=== PATIENT | male | born 1985 | race Caucasian/White ===

== ENCOUNTER 2018-07-15 12:01 | Emergency (ER) | payer OTHER ==
[2018-07-15] MEDS ORDERED: CEPHALEXIN 500 MG CAP PO ONE (12:51)
--- NOTE | 2018-07-15 12:54 | EDPHY ---
H & P Smoking Status: Never smoked Time Seen by Provider: 07/15/18 12:35 HPI/ROS: CHIEF COMPLAINT: Left thumb laceration HISTORY OF PRESENT ILLNESS: 33-year-old [id number] male sustained accidental laceration to his left thumb when he was opening a box of shortly prior to arrival. Laceration to his left thumb dorsal aspect proximal phalanx. Positive paresthesia distally. Complaining of pain to this area. [ PHYSICAL EXAM (Prior to examination, patient consented to physical exam, hands were washed and my usual and customary physical exam procedures followed) 1) GENERAL: Well-developed, well-nourished, alert and oriented. Appears anxious and uncomfortable 2) HEAD: Normocephalic 3) HEENT: sclera anicteric 4) LUNGS: Breathing comfortably. 5) SKIN: Left thumb dorsal aspect proximal phalanx 1.5 cm well-demarcated linear laceration. Superficial. No signs of infection 6) MUSCULOSKELETAL: Opposition abduction abduction extension intact of the thumb. No deficits. 7) NEUROLOGIC: Full sensation two-point discrimination intact to the thumb (Blayne,D Yecenia) Constitutional: Initial Vital Signs Temperature (C) 36.6 C 07/15/18 12:05 Heart Rate 60 07/15/18 12:05 Respiratory Rate 16 07/15/18 12:05 Blood Pressure 158/91 H 07/15/18 12:05 O2 Sat (%) 97 07/15/18 12:05 O2 Delivery Mode Room Air Allergies/Adverse Reactions: amoxicillin Allergy (Verified 07/15/18 12:04) Home Medications: Medication Instructions Recorded Finasteride 07/15/18 Singulair 07/15/18 MDM/Departure - [facility] Procedures: Procedure: Laceration repair. I explained the indications, risks and benefits for both laceration repair and anesthetic administration. Verbal consent was obtained from the [patient]. The laceration on the left thumb was anesthetized using [0.5% bupivicaine] [with ][out] [epinephrine]. After anesthetic administered the patient was observed for a period of time and had no apparent adverse effects. The wound was cleaned , prepped, draped in normal sterile fashion and explored to its base. No foreign body seen, no foreign bodies palpated. [There were no deep structures involved.] [No tendon injury was identified.] The wound was repaired with 3 simple interrupted 5 O Prolene sutures. The wound repair was [simple]. The procedure was performed by [myself]. Patient has been informed that scarring will occur, although efforts have been made to minimize this. Procedure: Splint A [ Velcro thumb spica] splint was applied by ER transport technician. After application of the splint I returned and re-examined the patient. The splint was adequately immobilizing the joint and distal to the splint the patient's circulation and sensation were intact. Patient shows no signs of compartment syndrome. Was given orthopedic precautions. (Ezra Cisneros) Medications Given: Discontinued Medications Cephalexin HCl (Keflex) 500 mg PO EDNOW ONE PRN Reason: Protocol Stop: 07/15/18 12:52 Last Admin: 07/15/18 12:55 Dose: 500 mg ED Course/Re-evaluation: Patient was re-evaluated with serial exams. 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 On exam he has no gross deficits this is however I have recommended follow-up with Hand surgery and given him this referral information. Sutures to be removed in 10 days. I saw this patient independently based on established practice protocols. Care of patient under supervision of primary supervising physician Dr Kaplan. (Ezra Cisneros) I did not see this patient while he was in the emergency department. However his care was discussed with the PA while the patient was in the department. I agree with treatment plan and management (Triston Kaplan) - Depart Disposition: Home, Routine, Self-Care Clinical Impression: Laceration of left thumb Condition: Good Instructions: Care For Your Stitches (ED), Laceration (ED) Additional Instructions: Return to the ER if you develop redness, swelling, discharge, warmth to the wound, red streaks going up your arm, or any other symptoms that concern you. Referrals: Manoj Burnham MD [Medical Doctor] - As per Instructions Return, to the ER in 10 days for suture removal [Other] - 07/25/18
[2018-07-15 14:12] VITALS: BP 126/68
== END 2018-07-15 14:11 | disposition home or self-care (01) ==
PROC: 0HQGXZZ Repair Left Hand Skin, External Approach (ICD-10-PCS; principal; 2018-07-15)
DX: S61.012A Laceration without foreign body of left thumb without damage to nail, initial encounter (principal)
CPT/HCPCS: L3807